=== PATIENT | female | born 1970 | race Caucasian/White ===

== ENCOUNTER 2021-03-07 15:54 | Emergency (ER) | payer OTHER ==
[~2021-03-07] VITALS: Ht 165.1 cm; Wt 69.5 kg
[2021-03-07 16:32] VITALS: BP 140/95
--- NOTE | 2021-03-07 19:32 | NUR ---
Dr. Huertas examining patient.
[2021-03-07] MEDS ORDERED: ONDANSETRON 4 MG ODT PO ONE (19:35)
[2021-03-07 19:50] VITALS: BP 148/104
[2021-03-07] MEDS ORDERED: NACL 0.9% 1,000 ML IV ONE (19:55)
[2021-03-07 20:05] LABS: BASOPHILS % (AUTO) 0.1 % (0.0-2.0); HEMATOCRIT 42.2 % (36-48); HEMOGLOBIN 14.2 g/dL (12.0-16.0); LYMPHOCYTES # (AUTO) 0.7 K/uL (2.5-16.5); LYMPHOCYTES % (AUTO) 4.9 % (20.5-51.1); MEAN CORPUSCULAR HEMOGLOBIN 30 pg (27-31); MEAN CORPUSCULAR HGB CONC 34 g/dL (33-37); MEAN CORPUSCULAR VOLUME 90.2 fL (80-94); MONOCYTES # (AUTO) 0.8 K/uL (0.8-1.0); MONOCYTES % (AUTO) 5.7 % (1.7-9.3); NEUTROPHILS # (AUTO) 12.6 K/uL (1.8-7.7); NEUTROPHILS % (AUTO) 89.3 % (42.2-75.2); PLATELET COUNT (AUTO) 245 K/uL (140-450); RED BLOOD CELL COUNT(AUTO) 4.68 MIL/uL (4.20-5.40); RED CELL DISTRIBUTION WIDTH 13.1 % (11.6-13.7); WHITE BLOOD COUNT (AUTO) 14.1 K/uL (4.8-10.8)
[2021-03-07 20:24] LABS: ANION GAP 15.8 (8-16); CARBON DIOXIDE 26.2 mmol/L (21-32); CREATININE 0.7 mg/dL (0.6-1.3)
[2021-03-07] MEDS ORDERED: ONDANSETRON 4 MG/2 ML VIAL IVP ONE (20:30)
--- NOTE | 2021-03-07 20:30 | NUR ---
PT MOVED TO BED #5
--- NOTE | 2021-03-07 20:35 | NUR ---
ATTEMPTED IV INSERTION x2 AND UNSUCCESSFUL. PRIMARY RN MADE AWARE.
[2021-03-07 20:48] LABS: ALBUMIN 4.1 g/dL (3.4-5.0); TOTAL BILIRUBIN 0.5 mg/dL (0.0-1.0)
--- NOTE | 2021-03-07 21:30 | NUR ---
ANOTHER ATTEMPT AT IV INSERTION. PT STATES "I DONT WANT IT. I JUST WANT TO GO HOME." / NORMAN MADE AWARE.
[2021-03-07] MEDS ORDERED: ONDA8TAB87 PO (21:51)
[2021-03-07] MEDS ORDERED: IBUP-2213 PO (21:51)
--- NOTE | 2021-03-07 22:00 | NUR ---
Patient discharged with v/s stable. Written and verbal after care instructions given and explained. Patient alert, oriented and verbalized understanding of instructions. Ambulatory with steady gait. All questions addressed prior to discharge. ID band removed. Patient advised to follow up with PMD. Rx MOTRIN AND ZOFRAN given. Patient educated on indication of medication including possible reaction and side effects. Opportunity to ask questions provided and answered.
== END 2021-03-07 22:00 | disposition home or self-care (01) ==
LOC: MED 15:54
DX: R11.2 Nausea with vomiting, unspecified (principal); R19.7 Diarrhea, unspecified; R53.1 Weakness
CPT/HCPCS: 36415; 80053; 81002; 85025; 99283; Q0162